=== PATIENT | female | born 1980 | race Caucasian/White ===

== ENCOUNTER 2018-04-15 21:07 | Emergency (ER) | payer BC ==
[~2018-04-15] VITALS: Ht 162.6 cm; Wt 86.4 kg
[~2018-04-15 21:07] MED LIST: MOTRIN 600600 MG/TAB PO; PERCOCET 325 MG1 TA2 PO; PRENATAL1 TA7
[2018-04-15 21:13] VITALS: BP 119/75; TEMP 97.8
[2018-04-15 22:21] VITALS: PULSE 94
== END 2018-04-15 22:24 | disposition home or self-care (01) ==
LOC: COL.ER 21:07
DX: S83.91XA Sprain of unspecified site of right knee, initial encounter (principal); W10.9XXA Fall (on) (from) unspecified stairs and steps, initial encounter; X50.0XXA Overexertion from strenuous movement or load, initial encounter; Y92.009 Unspecified place in unspecified non-institutional (private) residence as the place of occurrence of the external cause

== ENCOUNTER → 2019-12-18 | Outpatient (CLI) | payer BC | LOC: COL.RAD | DX: R17 Unspecified jaundice (principal) ==

== ENCOUNTER → 2020-04-17 | Outpatient (CLI) | payer BC | LOC: MC.RAD 09:10 | DX: Z12.31 Encounter for screening mammogram for malignant neoplasm of breast (principal) ==

== ENCOUNTER → 2021-07-14 | Outpatient (CLI) | payer BC | LOC: MC.RAD 09:22 | DX: Z12.31 Encounter for screening mammogram for malignant neoplasm of breast (principal) ==

== ENCOUNTER → 2022-08-10 | Outpatient (CLI) | payer BC | LOC: MC.RAD 09:59 | DX: Z12.31 Encounter for screening mammogram for malignant neoplasm of breast (principal) ==

== ENCOUNTER → 2023-10-10 | Outpatient (CLI) | payer BC | LOC: MC.RAD 14:25 | DX: Z12.31 Encounter for screening mammogram for malignant neoplasm of breast (principal) ==

== ENCOUNTER → 2023-12-20 | Outpatient (CLI) | payer BC ==
[~2023-12-20] MED LIST changes: +Iohexol 300 - 100 ML VIAL IV ONE; +NS 100 ML IV SCH
== END ==
LOC: COL.RAD 06:55
DX: K51.90 Ulcerative colitis, unspecified, without complications (principal)
CPT/HCPCS: Q9967